=== PATIENT | male | born 1990 ===

== ENCOUNTER 2018-06-12 21:43 | Emergency (ER) ==
[2018-06-12] MEDS ORDERED: LIDOCAINE HCL 1% SDV SUBCUT STA (22:01)
[2018-06-12] MEDS ORDERED: BOOSTRIX IM ONE (22:02)
[2018-06-12 22:08] VITALS: BP 150/82; TEMP 97.5; BMI 31.4
--- NOTE | 2018-06-12 22:09 | ED.PDOC ---
General ED Provider: Dr. 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 HE is still able to move his foot states he has pain with weight bearing. Time Seen by Physician: 22:05 Mode of Arrival: Walk-In Information Source: Patient Nursing and Triage Documentation Reviewed and Agree: Yes Does patient meet sepsis criteria?: No System Inflammatory Response Syndrome: Not Applicable Sepsis Protocol: For patient's 13 years and over: Temp is 96.8 and below OR 101 and greater Pulse >90 BPM Resp >20/minute Acutely Altered Mental Status Are patient's symptoms suggestive of a new infection, such as: -Pneumonia -Skin, Soft Tissue -Endocarditis -UTI -Bone, Joint Infection -Implantable Device -Acute Abdominal Infection -Wound Infection -Meningitis -Blood Stream Catheter Infection -Unknown Review of Systems - Review Of Systems Constitutional: Reports: No symptoms Musculoskeletal: Reports: Joint pain Skin: Reports: Other (right foot laceration. ) Neurological: Reports: Anxiety All Other Systems: Reviewed and Negative Past Medical History - Past Medical History Previously Healthy: Yes Endocrine: Reports: None Cardiovascular: Reports: None Respiratory: Reports: None Hematological: Reports: None Gastrointestinal: Reports: None Genitourinary: Reports: None Neuro/Psych: Reports: None Musculoskeletal: Reports: None Cancer: Reports: None - Surgical History General Surgical History: Reports: None - Family History Family History: Reports: None - Social History Smoking Status: Never smoker Hx Substance Use: No Alcohol Screening: Occasionally - Immunizations Tetanus Shot up to Date: No Physical Exam - Physical Exam Appearance: Well-appearing, No pain distress, Well-nourished Eyes: LUIS EDUARDO, EOMI, Conjunctiva clear ENT: Ears normal, Nose normal, Oropharynx normal Respiratory: Airway patent, Breath sounds clear, Breath sounds equal, Respirations nonlabored Cardiovascular: RRR, Pulses normal, No rub, No murmur GI/: Soft, Nontender, No masses, Bowel sounds normal, No Organomegaly Musculoskeletal: Normal strength, ROM intact, No edema, No calf tenderness Skin: Warm, Dry Neurological: Sensation intact, Motor intact, Reflexes intact, Cranial nerves intact, Alert, Oriented Psychiatric: Affect appropriate, Mood appropriate Interpretation - Radiology Interpretation Radiology Interpretation By: ED Physician Radiology Results: Negative Exam Interpreted: Other (right foot x ray ) Procedures - Laceration/Wound Repair right foot Wound Description: Linear Wound Length (cm): 2.5 cm Wound Width: 0.2 Wound Depth: 0.4 Wound Explored: Clean Wound Irrigated: Yes Wound Prep: Betadine Anesthesia: Lidocaine Wound Repaired With: Sutures, Steri-strips Suture Size and Type: 4.0 Ethlone Number of Sutures: 5 Sterile Dressing Applied?: Yes Splint Applied?: No Progress: Tolerated procedure well Critical Care Note - Critical Care Note Total Time (mins): 0 Course - Course Orders, Labs, Meds: Orders Category Date Time Status Diphth,Pertuss(Acell),Tet Vac [Boostrix] MEDS 06/12/18 22:02 Discontinued 0.5 ml IM .ONCE ONE Ibuprofen [Motrin] MEDS 06/12/18 22:45 Discontinued 800 mg PO ONCE STA Lidocaine HCl/Pf [Lidocaine HCl 1% Sdv] MEDS 06/12/18 22:01 Discontinued 5 ml SUBCUT ONCE STA FOOT, RIGHT 3 VIEWS Stat RADS 06/12/18 22:39 Taken Medications Discontinued Medications Generic Name Dose Route Start Last Admin Trade Name Freq PRN Reason Stop Dose Admin Diphtheria/Pertussis/Tetanus Vacc 0.5 ml 06/12/18 22:02 06/12/18 22:23 Boostrix IM 06/12/18 22:03 0.5 ml .ONCE ONE Administration Ibuprofen 800 mg 06/12/18 22:45 06/12/18 22:57 Motrin PO 06/12/18 22:46 800 mg ONCE STA Administration Lidocaine HCl 5 ml 06/12/18 22:01 06/12/18 22:25 Lidocaine Hcl 1% Sdv SUBCUT 06/12/18 22:02 5 ml ONCE STA Administration Vital Signs: Temp Pulse Resp BP Pulse Ox 06/12/18 21:48 97.5 F L 71 18 150/82 H 95 Departure - Departure Time of Disposition: 23:30 Disposition: HOME SELF-CARE Discharge Problem: Laceration - injury Instructions: Care For Your Stitches (ED), Laceration (ED) Condition: Good Pt referred to PMD for follow-up: Yes IPMP verified?: No Additional Instructions: Follow up with your PCP Leave stitches in 7-10 days Keep area clean and dry Allergies/Adverse Reactions: Allergies No Known Allergies Allergy (Unverified 06/12/18 21:56) Home Medications: Ambulatory Orders 1 [No Reported Medications] 06/12/18
[2018-06-12] MEDS ORDERED: MOTRIN PO STA (22:45)
--- NOTE | 2018-06-13 06:12 | DI ---
Exam: Right foot three-view HISTORY: Laceration, tenderness Findings / impression: No bony or articular abnormality. No radiopaque foreign body is seen. Negativ e exam.
== END 2018-06-12 23:10 | disposition home or self-care (01) ==
LOC: ED 21:43
DX: S91.311A Laceration without foreign body, right foot, initial encounter (principal); W29.8XXA Contact with other powered hand tools and household machinery, initial encounter
CPT/HCPCS: 90471; 90715; 96372; 99283